=== PATIENT | male | born 1975 | race Asian ===

== ENCOUNTER 2017-07-03 00:02 | Emergency (ER) | payer OTHER ==
[~2017-07-03] VITALS: Ht 167.6 cm; Wt 49.9 kg
[2017-07-03 00:18] VITALS: BP 133/89
[2017-07-03 01:08] LABS: BARBITURATES NEG (NEG); BENZODIAZEPINES NEG (NEG); CANNABINOIDS NEG (NEG); COCAINE NEG (NEG); METHADONE NEG (NEG); OPIATES NEG (NEG); PHENCYCLIDINE NEG (NEG)
[2017-07-03 01:19] LABS: BASO % 1 % (0-3); EOS % 0 % (0-3); HEMATOCRIT 41.1 % (39.0-53.0); HEMOGLOBIN 14.3 g/dL (13.0-17.5); LYMPH # 3.9 x10^3/uL (1.0-4.8); LYMPH % 57 % (24-48); MEAN CORPUSCULAR HEMOGLOBIN 35 pg (25-35); MEAN CORPUSCULAR HGB CONC 35 g/dL (31-37); MEAN CORPUSCULAR VOLUME 101 fL (79-100); MONO % 8 % (0-9); NEUT % 34 % (31-73); PLATELET COUNT 78 x10^3/uL (140-400); RED BLOOD COUNT 4.08 x10^6/uL (4.30-5.70); RED CELL DISTRIBUTION WIDTH 14.3 % (11.5-14.5); WHITE BLOOD COUNT 6.8 x10^3/uL (4.0-11.0)
[2017-07-03 01:35] LABS: CALCIUM 7.9 mg/dL (8.5-10.1); CREATININE 1.1 mg/dL (0.7-1.3); GFR 73.4; POTASSIUM 3.9 mmol/L (3.5-5.1)
[2017-07-03 01:41] LABS: ALBUMIN 3.2 g/dL (3.4-5.0); ALBUMIN/GLOBULIN RATIO 0.7 (1.0-1.7); TOTAL BILIRUBIN 1.4 mg/dL (0.2-1.0); TOTAL PROTEIN 7.8 g/dL (6.4-8.2)
[2017-07-03] MEDS ORDERED: MULTIVIT INFUSN,ADULT 4,VIT K 10 ML, FOLIC ACID 1 MG, THIAMINE 100 MG in IV RINGERS,LAC... IV ONE (03:00)
[2017-07-03] MEDS ORDERED: CONTRAST GIVEN MC PRN (03:00)
[2017-07-03] MEDS ORDERED: IOHEXOL 300 MG/ML 75 ML VIAL IV ONE (03:00)
[2017-07-03] MEDS ORDERED: FAMOTIDINE 20 MG/2 ML VIAL IVP ONE (03:00)
--- NOTE | 2017-07-03 03:21 | RAD ---
EXAM: Abdomen and pelvis CT with intravenous contrast. HISTORY: 41-year-old male with abdominal pain and vomiting for 2 weeks. TECHNIQUE: Computed tomographic images of the abdomen and pelvis were obtained following the administration of 75 cc of Omni 300 intravenous contrast. Multiplanar reformatting was performed. PQRS compliance statement: One or more of the following individualized dose reduction techniques were utilized for this examination: 1. Automated exposure control 2. Adjustment of the mA and/or kV according to patient size 3. Use of iterative reconstruction technique COMPARISON: None. FINDINGS: The lung bases demonstrate no acute finding. The liver, spleen, gallbladder, pancreas, adrenal glands and bilateral kidneys demonstrate no focal abnormality. The GI tract demonstrates no dilated bowel loops to suggest obstruction. Formed fecal material is present throughout the colon. The appendix is normal in caliber in the right lower quadrant. The urinary bladder is grossly unremarkable. Prostate appears normal in size. No intra-abdominal or pelvic free fluid, free air or significant lymphadenopathy is seen. Aorta is normal in caliber. Overlying soft tissues and visualized osseous structures demonstrate no acute or suspicious finding. Mild degenerative changes present at the L5-S1 level. IMPRESSION: No acute intra-abdominal or pelvic process seen. Electronically signed by: Camila Gutierrez MD (07/03/2017 3:18 AM) [facility]
[2017-07-03 04:13] LABS: PLT ESTIMATE DECREASED (ADEQUATE)
--- NOTE | 2017-07-03 04:51 | PHYS DOC ---
Past Medical History Past Medical History: No Pertinent History Past Surgical History: No Surgical History Alcohol Use: Rarely Drug Use: None Adult General Chief Complaint Chief Complaint: MULTIPLE COMPLAINTS HPI HPI Patient is a 41 year old [place] male who presents with with complaints of epigastric pain times several months, habitual daily alcohol use and thoughts of depression and well-formed. Patient denies specific plan or intent. Abdominal pain is described as epigastric, dull and burning and rated moderate. Pain is worse with eating and alcohol consumption. Patient denies hematemesis, vomiting, bloody stools or dark tarry stools. Patient reports 20 pound weight loss since symptoms began. Denies fever chills, abdominal pain back pain, constipation or diarrhea. No other acute symptoms or complaints. Patient has not visited with the PCP, GI specialist or been evaluated by a substance abuse counselor. Review of Systems Review of Systems Review symptoms as per history of present illness. All other review symptoms are negative. Current Medications Current Medications Current Medications Medications (Trade) Dose Ordered Sig/Nia Start Time Stop Time Status Last Admin Dose Admin Famotidine (Pepcid) 20 mg 1X ONCE 07/03/17 03:00 07/03/17 03:01 DC 07/03/17 03:09 20 MG Info (Do NOT chart on this entry -- for MONITORING) 1 each PRN DAILY PRN 07/03/17 03:00 07/05/17 02:59 Iohexol (Omnipaque 300 Mg/ml) 75 ml 1X ONCE 07/03/17 03:00 07/03/17 03:01 DC 07/03/17 03:00 75 ML Lorazepam (Ativan) 1 mg 1X ONCE 07/03/17 03:00 07/03/17 03:01 DC 07/03/17 03:10 1 MG Multivitamins 10 ml/Folic Acid 1 mg/Thiamine HCl 100 mg/Ringer's Solution 1,011.2 ml @ 1,000 mls/ hr 1X ONCE 07/03/17 03:00 07/03/17 04:00 DC 07/03/17 03:09 1,000 MLS/HR Allergies Allergies Allergies Coded Allergies Type Severity Reaction Last Updated Verified No Known Drug Allergies 08/20/16 No Physical Exam Physical Exam Constitutional: Well developed, well nourished, no acute distress, non-toxic appearance. [] HENT: Normocephalic, atraumatic, bilateral external ears normal, oropharynx moist, no oral exudates, nose normal. [] Eyes: PERRLA, EOMI, conjunctiva normal, no discharge. [] Neck: Normal range of motion, no tenderness, supple, no stridor. [] Cardiovascular:Heart rate regular rhythm, no murmur [] Lungs & Thorax: Bilateral breath sounds clear to auscultation [] Abdomen: Bowel sounds normal, soft, epigastric pain, tenderness no rebound rigidity or guarding. [] Skin: Warm, dry, no erythema, no rash. [] Back: No tenderness, no CVA tenderness. [] Extremities: No tenderness, no cyanosis, no clubbing, ROM intact, no edema. [] Neurologic: Alert and oriented X 3, normal motor function, normal sensory function, no focal deficits noted. [] Psychologic: Affect normal, judgement normal, mood normal. [] Current Patient Data Vital Signs Vital Signs Date Time Temp Pulse Resp B/P (MAP) Pulse Ox O2 Delivery O2 Flow Rate FiO2 07/03/17 00:18 98.2 80 18 133/89 (104) 100 Room Air 98.2 Lab Values Laboratory Tests Test 07/03/17 00:20 07/03/17 00:23 07/03/17 00:39 White Blood Count 6.8 x10^3/uL (4.0-11.0) Red Blood Count 4.08 x10^6/uL (4.30-5.70) L Hemoglobin 14.3 g/dL (13.0-17.5) Hematocrit 41.1 % (39.0-53.0) Mean Corpuscular Volume 101 fL (79-100) H Mean Corpuscular Hemoglobin 35 pg (25-35) Mean Corpuscular Hemoglobin Concent 35 g/dL (31-37) Red Cell Distribution Width 14.3 % (11.5-14.5) Platelet Count 78 x10^3/uL (140-400) L Neutrophils (%) (Auto) 34 % (31-73) Lymphocytes (%) (Auto) 57 % (24-48) H Monocytes (%) (Auto) 8 % (0-9) Eosinophils (%) (Auto) 0 % (0-3) Basophils (%) (Auto) 1 % (0-3) Neutrophils # (Auto) 2.3 x10^3uL (1.8-7.7) Lymphocytes # (Auto) 3.9 x10^3/uL (1.0-4.8) Monocytes # (Auto) 0.5 x10^3/uL (0.0-1.1) Eosinophils # (Auto) 0.0 x10^3/uL (0.0-0.7) Basophils # (Auto) 0.0 x10^3/uL (0.0-0.2) Platelet Estimate Decreased (ADEQUATE) Giant Platelets Few Sodium Level 132 mmol/L (136-145) L Potassium Level 3.9 mmol/L (3.5-5.1) Chloride Level 98 mmol/L (98-107) Carbon Dioxide Level 24 mmol/L (21-32) Anion Gap 10 (6-14) Blood Urea Nitrogen 11 mg/dL (8-26) Creatinine 1.1 mg/dL (0.7-1.3) Estimated GFR (Cockcroft-Gault) 73.4 BUN/Creatinine Ratio 10 (6-20) Glucose Level 123 mg/dL (70-99) H Calcium Level 7.9 mg/dL (8.5-10.1) L Total Bilirubin 1.4 mg/dL (0.2-1.0) H Aspartate Amino Transferase (AST) 218 U/L (15-37) H Alanine Aminotransferase (ALT) 83 U/L (16-63) H Alkaline Phosphatase 151 U/L (46-116) H Total Protein 7.8 g/dL (6.4-8.2) Albumin 3.2 g/dL (3.4-5.0) L Albumin/Globulin Ratio 0.7 (1.0-1.7) L Ethyl Alcohol Level 37 mg/dL (0-10) H Urine Opiates Screen Neg (NEG) Urine Methadone Screen Neg (NEG) Urine Barbiturates Neg (NEG) Urine Phencyclidine Screen Neg (NEG) Urine Amphetamine/Methamphetamine Neg (NEG) Urine Benzodiazepines Screen Neg (NEG) Urine Cocaine Screen Neg (NEG) Urine Cannabinoids Screen Neg (NEG) Urine Ethyl Alcohol Pos (NEG) Lipase 231 U/L (73-393) Laboratory Tests 07/03/17 00:20 Laboratory Tests 07/03/17 00:20 EKG EKG [EKG: Normal sinus rhythm, no acute ST-T wave changes: Right bundle branch block , QTC 424. EKG interpreted by me.] Radiology/Procedures Radiology/Procedures [Ct abd/pelvis: No acute intra-abdominal process.] Course & Med Decision Making Course & Med Decision Making Pertinent Labs and Imaging studies reviewed. (See chart for details) [Patient with alcoholic gastritis with subsequent weight loss. No evidence of acute hemorrhage gastritis. She also reports feelings of depression and thoughts of self-harm. Although he denies specific plan or attempt. Psychiatric assessment maintenance team leader consulted. PAT member does feel as though the patient represents an imminent risk or harm to himself. Chest with a patent importance of treating his gastritis and discontinuing alcohol and following up with local PCP and mental health services. Patient's agreement with discharge plan. Return precautions reviewed. Dragon Disclaimer Dragon Disclaimer This electronic medical record was generated, in whole or in part, using a voice recognition dictation system. Departure Departure Impression: Primary Impression: Alcohol abuse Additional Impressions: Mood disorder Alcoholic gastritis Disposition: 01 HOME, SELF-CARE Condition: IMPROVED Patient Instructions: Gastritis, Adult, Hyam-ci-J[place], Alcohol Problems Additional Instructions: Please do not drink alcohol as this will make your abdominal pain worse. It can lead to chronic and life-threatening illness. Please take antacids and nausea medications as directed. Follow-up with community outpatient until health and rehabilitation services. Please follow-up with local primary care physician to reevaluate abdominal pain Problem Qualifiers GERTRUDIS XIAO DO Jul 03, 2017 04:51
--- NOTE | 2017-07-03 10:08 | EKG ---
[facility] [address] [place] [address] Test Date: 2017-07-03 Test Time: 00:51:26 Pat Name: NAVARRO PINEDA Department: Room: Gender: M [employer]working Machine [employer]: : 1975 Requested By: GERTRUDIS XIAO Order Number: [id number] Reading MD: Dakota Robb Measurements Intervals [place] Rate: 82 P: 56 MI: 180 QRS: 37 QRSD: 82 T: 53 QT: 360 QTc: 424 Interpretive Statements SINUS RHYTHM Electronically Signed On 07-08-2017 14:24:38 CDT by Dakota Robb
== END 2017-07-03 03:53 | disposition home or self-care (01) ==
LOC: ER 00:02
DX: K29.20 Alcoholic gastritis without bleeding (principal); F10.10 Alcohol abuse, uncomplicated; F39 Unspecified mood [affective] disorder
CPT/HCPCS: 36415; 74177; 80053; 80307; 83690; 85025; 93005; 96365; 96375; 99285; G0480; J2060; Q9967; S0028; J7120; G0479

== ENCOUNTER 2017-11-28 12:00 | Emergency (ER) | payer OTHER ==
[2017-11-28 12:28] LABS: ADD MAN DIFF? NO
[2017-11-28] MEDS: DICYCLOMINE 20 MG/2 ML AMPUL. IM (12:39)
[2017-11-28] MEDS: IV NORMAL SALINE 1000ML BAG 1,000 ML IV (12:40)
[2017-11-28] MEDS: fentaNYL PF VIAL 100 MCG/2 ML VIAL IV (12:40)
[2017-11-28] MEDS: ONDANSETRON PF 4 MG/2 ML VIAL. IV (12:40)
[2017-11-28 12:41] LABS: BILIRUBIN,URINE NEGATIVE (NEG); CLARITY,URINE CLEAR; COLOR,URINE AMBER; GLUCOSE,URINE NEGATIVE (NEG); NITRITE,URINE NEGATIVE (NEG); PH,URINE 5.5; PROTEIN,URINE NEGATIVE (NEG-TRACE); UROBILINOGEN,URINE 0.2 mg/dL (0.2 mg/dL)
[2017-11-28 12:43] LABS: ANION GAP 11 (6-14); BLOOD UREA NITROGEN 10 mg/dL (8-26); BUN/CREATININE RATIO 9 (6-20); CALCIUM 8.5 mg/dL (8.5-10.1); CARBON DIOXIDE 25 mmol/L (21-32); CHLORIDE 102 mmol/L (98-107); CREATININE 1.1 mg/dL (0.7-1.3); GFR 73.1; GLUCOSE 146 mg/dL (70-99); POTASSIUM 3.3 mmol/L (3.5-5.1); SODIUM 138 mmol/L (136-145)
[2017-11-28 12:45] LABS: BASO % 1 % (0-3); EOS % 0 % (0-3); HEMATOCRIT 44.4 % (39.0-53.0); HEMOGLOBIN 14.5 g/dL (13.0-17.5); LYMPH # 2.2 x10^3/uL (1.0-4.8); LYMPH % 23 % (24-48); MEAN CORPUSCULAR HEMOGLOBIN 33 pg (25-35); MEAN CORPUSCULAR HGB CONC 33 g/dL (31-37); MEAN CORPUSCULAR VOLUME 101 fL (79-100); MONO # 0.7 x10^3/uL (0.0-1.1); MONO % 8 % (0-9); NEUT # 6.5 x10^3uL (1.8-7.7); NEUT % 69 % (31-73); PLATELET COUNT 84 x10^3/uL (140-400); RED BLOOD COUNT 4.38 x10^6/uL (4.30-5.70); RED CELL DISTRIBUTION WIDTH 15.8 % (11.5-14.5); WHITE BLOOD COUNT 9.5 x10^3/uL (4.0-11.0)
[2017-11-28 12:49] LABS: ALBUMIN 3.8 g/dL (3.4-5.0); ALBUMIN/GLOBULIN RATIO 0.8 (1.0-1.7); ALK PHOS 136 U/L (46-116); ALT (SGPT) 44 U/L (16-63); AST (SGOT) 65 U/L (15-37); LIPASE 199 U/L (73-393); TOTAL BILIRUBIN 2.6 mg/dL (0.2-1.0); TOTAL PROTEIN 8.4 g/dL (6.4-8.2)
[2017-11-28 12:59] LABS: INFLUENZA A PATIENT NEGATIVE (NEGATIVE); INFLUENZA B PATIENT NEGATIVE (NEGATIVE); OBC FLU VALID
[2017-11-28 13:05] LABS: BACTERIA,URINE 0 /HPF (0-FEW); RBC,URINE 0 /HPF (0-2); SQUAMOUS EPITHELIAL CELL,UR MANY /LPF
[2017-11-28] MEDS: LIDO:MAALOX:DONNATAL 1:1:1 15 ML SINGLE DOSE SWSW (13:40)
[2017-11-28] MEDS: POTASSIUM CHLORIDE 20 MEQ TABLET.ER. PO (13:40)
[2017-11-28 14:11] LABS: NEGATIVE OBC STREP NEG; POSITIVE OBC STREP POS
[2017-11-28 14:42] LABS: PLT ESTIMATE DECREASED (ADEQUATE); STOMATOCYTES MANY
== END 2017-11-28 14:00 | disposition home or self-care (01) ==
LOC: ER 14:00
DX: N39.0 Urinary tract infection, site not specified (principal); E86.0 Dehydration; D69.6 Thrombocytopenia, unspecified; R79.89 Other specified abnormal findings of blood chemistry
CPT/HCPCS: 36415; 74022; 80053; 81001; 83690; 85025; 87070; 87086; 87804; 87804-59; 87880; 96361; 96372; 96374; 96375; 99285-25; J0500; J2405; J3010; J7030

== ENCOUNTER 2017-12-29 04:03 | Emergency (ER) | payer OTHER ==
[2017-12-29 05:00] LABS: ADD MAN DIFF? NO
[2017-12-29 05:02] LABS: BASO % 1 % (0-3); EOS # 0.1 x10^3/uL (0.0-0.7); EOS % 1 % (0-3); HEMATOCRIT 41.4 % (39.0-53.0); HEMOGLOBIN 14.1 g/dL (13.0-17.5); LYMPH # 2.4 x10^3/uL (1.0-4.8); LYMPH % 49 % (24-48); MEAN CORPUSCULAR HEMOGLOBIN 34 pg (25-35); MEAN CORPUSCULAR HGB CONC 34 g/dL (31-37); MEAN CORPUSCULAR VOLUME 100 fL (79-100); MONO # 0.3 x10^3/uL (0.0-1.1); MONO % 6 % (0-9); NEUT # 2.1 x10^3uL (1.8-7.7); NEUT % 43 % (31-73); PLATELET COUNT 134 x10^3/uL (140-400); RED BLOOD COUNT 4.15 x10^6/uL (4.30-5.70); RED CELL DISTRIBUTION WIDTH 13.6 % (11.5-14.5); WHITE BLOOD COUNT 4.9 x10^3/uL (4.0-11.0)
[2017-12-29 05:11] LABS: ANION GAP 6 (6-14); BLOOD UREA NITROGEN 11 mg/dL (8-26); BUN/CREATININE RATIO 11 (6-20); CALCIUM 8.2 mg/dL (8.5-10.1); CARBON DIOXIDE 27 mmol/L (21-32); CHLORIDE 103 mmol/L (98-107); GFR 81.6; GLUCOSE 97 mg/dL (70-99); POTASSIUM 3.5 mmol/L (3.5-5.1); SODIUM 136 mmol/L (136-145)
[2017-12-29 05:13] LABS: ETHANOL 156 mg/dL (0-10)
[2017-12-29 05:17] LABS: ALBUMIN 3.4 g/dL (3.4-5.0); ALBUMIN/GLOBULIN RATIO 0.7 (1.0-1.7); ALK PHOS 160 U/L (46-116); ALT (SGPT) 40 U/L (16-63); AST (SGOT) 75 U/L (15-37); TOTAL BILIRUBIN 0.4 mg/dL (0.2-1.0); TOTAL PROTEIN 8.1 g/dL (6.4-8.2)
[2017-12-29 05:20] LABS: AMPHETAMINE/METHAMPHETAMINE NEG (NEG); BARBITURATES NEG (NEG); BENZODIAZEPINES NEG (NEG); CANNABINOIDS NEG (NEG); COCAINE NEG (NEG); ETHANOL, URINE POS (NEG); METHADONE NEG (NEG); OPIATES NEG (NEG); PHENCYCLIDINE NEG (NEG)
== END 2017-12-29 08:02 | disposition home or self-care (01) ==
LOC: ER 04:03
DX: F32.9 Major depressive disorder, single episode, unspecified (principal); F10.10 Alcohol abuse, uncomplicated; R45.851 Suicidal ideations
CPT/HCPCS: 36415; 80053; 80307; 85025; 93005; 99285-25; G0480

== ENCOUNTER 2018-04-12 11:54 | Emergency (ER) | payer OTHER ==
[2018-04-12 12:27] LABS: ADD MAN DIFF? NO
[2018-04-12] MEDS: chlordiazePOXIDE HCL 25 MG CAPSULE PO (12:29)
[2018-04-12 12:34] LABS: BASO % 1 % (0-3); EOS % 1 % (0-3); HEMATOCRIT 41.7 % (39.0-53.0); HEMOGLOBIN 14.5 g/dL (13.0-17.5); LYMPH # 2.5 x10^3/uL (1.0-4.8); LYMPH % 58 % (24-48); MEAN CORPUSCULAR HEMOGLOBIN 35 pg (25-35); MEAN CORPUSCULAR HGB CONC 35 g/dL (31-37); MEAN CORPUSCULAR VOLUME 100 fL (79-100); MONO # 0.4 x10^3/uL (0.0-1.1); MONO % 8 % (0-9); NEUT # 1.4 x10^3uL (1.8-7.7); NEUT % 32 % (31-73); PLATELET COUNT 109 x10^3/uL (140-400); RED BLOOD COUNT 4.16 x10^6/uL (4.30-5.70); RED CELL DISTRIBUTION WIDTH 13.4 % (11.5-14.5); WHITE BLOOD COUNT 4.3 x10^3/uL (4.0-11.0)
[2018-04-12 12:36] LABS: ANION GAP 9 (6-14); BLOOD UREA NITROGEN 15 mg/dL (8-26); BUN/CREATININE RATIO 14 (6-20); CALCIUM 7.8 mg/dL (8.5-10.1); CARBON DIOXIDE 27 mmol/L (21-32); CHLORIDE 103 mmol/L (98-107); CREATININE 1.1 mg/dL (0.7-1.3); GFR 73.1; GLUCOSE 108 mg/dL (70-99); POTASSIUM 3.9 mmol/L (3.5-5.1); SODIUM 139 mmol/L (136-145)
[2018-04-12 12:42] LABS: ALBUMIN 3.3 g/dL (3.4-5.0); ALBUMIN/GLOBULIN RATIO 0.8 (1.0-1.7); ALK PHOS 128 U/L (46-116); ALT (SGPT) 57 U/L (16-63); AST (SGOT) 84 U/L (15-37); LIPASE 161 U/L (73-393); TOTAL BILIRUBIN 0.7 mg/dL (0.2-1.0); TOTAL PROTEIN 7.7 g/dL (6.4-8.2)
[2018-04-12 12:44] LABS: ETHANOL 244 mg/dL (0-10)
[2018-04-12 12:49] LABS: TROPONINI < 0.017 ng/mL (0.000-0.055)
[2018-04-12 14:11] LABS: PLT ESTIMATE DECREASED (ADEQUATE); STOMATOCYTES MANY
== END 2018-04-12 15:10 | disposition home or self-care (01) ==
LOC: ER 11:54
DX: F10.20 Alcohol dependence, uncomplicated (principal); Y90.9 Presence of alcohol in blood, level not specified
CPT/HCPCS: 36415; 71045; 80053; 83690; 84484; 85025; 93005; 99285-25; G0480

== ENCOUNTER 2018-04-26 13:09 | Emergency (ER) | payer OTHER ==
[2018-04-26] MEDS: chlordiazePOXIDE HCL 25 MG CAPSULE PO (14:07)
== END 2018-04-26 14:11 | disposition home or self-care (01) ==
LOC: ER 14:11
DX: F10.20 Alcohol dependence, uncomplicated (principal); Z76.0 Encounter for issue of repeat prescription
CPT/HCPCS: 99283